=== PATIENT | female | born 1945 | race African-American/Black ===

== ENCOUNTER 2016-09-16 21:41 | Emergency (ER) | payer MEDICARE ==
[2016-09-16] MEDS ORDERED: AMOXICILLIN 500 MG CAP As Ordered ONE (23:04)
--- NOTE | 2016-09-16 23:13 | EDDOCDS ---
Nurse's Notes [facility] Name: Marcelle Dixon Age: 71 yrs Sex: Female : 1945 Arrival Date: 09/16/2016 Time: 21:41 Bed TR1 Private MD: GIGI SIDDIQI PA-C Diagnosis: Streptococcal pharyngitis Presentation: 09/16 21:47 Presenting complaint: Patient states: that she has a runny nose for the past 2 days and ms18 a slight headache. This patient has no additional risk factors. Adult Sepsis Screening: The patient does not have new or worsening altered mentation. Patient's respiratory rate is less than 22. Systolic blood pressure is greater than 100. Patient has a qSOFA score of 0- Negative Sepsis Screen. Suicide/Homicide risk assessment- the patient denies having any suicidal and/or homicidal ideations and does not present with any other emotional, behavioral or mental health complaints. Status: Patient is not a captain room service or dependent. Transition of care: patient was not received from another setting of care. 21:47 Method Of Arrival: Walkin/Carried/Asstd ms18 21:54 Acuity: SUNG Level 4 ms18 Triage Assessment: 21:53 Headache History: This patient has a history of headaches and the character of this ms18 headache is like all previous headaches. General: Appears in no apparent distress, comfortable, Behavior is appropriate for age, cooperative. Pain: Location: head Pain currently is 2 out of 10 on a pain scale. Pain began 2-3 days ago Also complains of no other associated symptoms. Neurological: Level of Consciousness is awake, alert, obeys commands, Oriented to person, place, time. EENT: Reports nasal discharge. Respiratory: No deficits noted. Derm: Skin is pink, warm & dry. normal. Historical: - Allergies: no known allergies; - Home Meds: 1. Allergy Relief (loratadine) 10 mg oral tab 1 tab once daily as needed 2. aspirin 81 mg Oral tab 1 tab once daily 3. Vitamin D3 2,000 unit oral cap daily 4. Klor-Con 10 10 mEq Oral TbER 1 tab 3 times per day 5. paroxetine HCl 20 mg Oral tab 1 tab once daily 6. omeprazole 20 mg Oral cpDR 1 cap once daily 7. simvastatin 20 mg Oral tab 1 tab once daily - PMHx: hypokalemia; Depression; Anxiety; GERD; High Cholesterol; - PSHx: nasal surgery; - Social history: Smoking status: Patient states was never smoker of tobacco. No barriers to communication noted, The patient speaks fluent Serbian. - Family history: Not pertinent. - : The pt / caregiver states he / she is not on anticoagulants. Home medication list is obtained from the patient. - Exposure Risk Screening:: None identified. Screenin:01 Screening information is obtained from the patient. Fall risk: No risks identified. b Assistance ADL's: requires no assistance with activities of daily living. Abuse/DV Screen: The patient / caregiver reports he/she is: not in a situation that causes fear, pain or injury. Nutritional screening: No deficits noted. Advance Directives: Currently, there is no health care proxy. There is no active DNR order. There is no living will. There is no Power of Paleontology Teacher. home support is adequate. Assessment: 23:01 General: Patient instructed on discharge instructions. Patient asked if [facility] were [facility] questions regarding discharge, patient stated no. Patient signed discharge instructions. Patient discharged in stable condition. . Pain: Location: head Pain currently is 4 out of 10 on a pain scale. Vital Signs: 21:44 BP 159 / 78; Pulse 101; Resp 18 S; Temp 101.6(O); Pulse Ox 97% on R/A; Weight 70.31 kg gr2 (R); Height 5 ft. 3 in. (160.02 cm) (R); Pain 7/10; 23:01 BP 148 / 70; Pulse 90; Resp 20; Temp 101.0(O); Pulse Ox 98% on R/A; Pain 4/10; jmb 21:44 Body Mass Index 27.46 (70.31 kg, 160.02 cm) gr2 Vitals: 21:44 Log In Time: September 16, 2016 at 21:44. gr2 22:58 Strep Screen is obtained and tested: [facility] Course: 21:43 Patient visited by Salomon Sosa. gr2 21:43 Patient moved to Waiting gr2 21:44 GIGI SIDDIQI is Private Physician. gr2 21:46 Patient visited by Salomon Sosa. gr2 21:46 Patient moved to Pre RCE gr2 21:55 Triage Initiated ms18 21:59 -Influenza A&B Rapid Antigen - Nose Sent. ms18 22:05 Patient moved to Triage 2 mdr 22:20 Lalito Montoya PA is PHCP. btw 22:20 Yamil Lemus DO is Attending Physician. btw 22:20 Patient visited by Lalito Montoya PA. btw 22:44 [facility] Payment Agreement was scanned into [email or web address] and attached to record. gb 22:59 GIGI SIDDIQI is Referral Physician. btw 23:01 The patient / caregiver is instructed regarding the plan of care and ED course. jmb 23:01 No IV's were initiated during this patient's visit. No procedures done that require jmb assistance. 23:11 Patient moved to TR1 mdr Administered Medications: 23:12 Drug: Amoxicillin 500 mg [amoxicillin 500 mg capsule (1 caps)] Route: PO; jmb Order Results: Lab Order: -Influenza A&B Rapid Antigen - Nose; SPEC'M 09/16/16 22:01 Test: INFLUENZA A RAPID SCR by ICA; Value: INFLUENZA A RESULTS NEGATIVE; Status: F Test: INFLUENZA A RAPID SCR by ICA; Value: Comments:; Status: F Test: INFLUENZA B RAPID SCR by ICA; Value: INFLUENZA B RESULTS NEGATIVE; Status: F Test Note: ; The Influenza test is a direct rapid immunoassay for the qualitative detection of Influenza viral antigen. Cell culture (Viral Culture) testing should be considered to confirm NEGATIVE results and to assist in detecting other viruses that can provide similar clinical symptoms. Please contact the lab within 24 hours ([phone]) if confirmatory testing is desired. Outcome: 23:00 Discharge ordered by Provider. btw 23:01 Discharge Assessment: Patient awake, alert and oriented x 3. No cognitive and/or jmb functional deficits noted. Patient verbalized understanding of disposition instructions. Patient awake and alert. obeys commands, Oriented to person, place and time. Patient verbalized understanding of disposition instructions. Patient has no functional deficits. patient administered narcotics - no. The following High Risk Discharge criteria are identified: None. Discharged to home ambulatory. Condition: stable Condition: improved. Discharge instructions given to patient, Instructed on discharge instructions, follow up and referral plans. Demonstrated understanding of instructions, medications, Pt was receptive of discharge instructions/ teaching. No special radiology studies were completed. Property sent home with patient. 23:12 Patient left the ED. cristobal Signatures: Shona Nova, Reg Reg gb Lalito Montoya, Salomon Jimenez gr2 Kulwinder Ellis,RN RN Dawn Brennan RN RN ms18 Ortiz Vargas, ORTHOTIST PROSTHETIST ORTHOTIST PROSTHETIST mdr MTDD
--- NOTE | 2016-09-16 23:13 | EDDOCDS ---
Physician Documentation [facility] Name: Marcelle Dixon Age: 71 yrs Sex: Female : 1945 Arrival Date: 09/16/2016 Time: 21:41 Bed TR1 Private MD: GIGI SIDDIQI PA-C Disposition: 09/16/16 23:00 Discharged to Home/Self Care. Impression: Streptococcal pharyngitis. - Condition is Stable. - Discharge Instructions: Strep Throat, [id number]. - Prescriptions for Amoxicillin 500 mg Oral Capsule - take 1 capsule by ORAL route every 8 hours for 10 days; 30 tablet. - Medication Reconciliation, Local Pharmacy Hours form. - Follow up: GIGI SIDDIQI; When: Call to arrange an appointment; Reason: Further diagnostic work-up, Recheck today's complaints, Continuance of care. - Problem is new. - Symptoms are unchanged. Historical: - Allergies: no known allergies; - Home Meds: 1. Allergy Relief (loratadine) 10 mg oral tab 1 tab once daily as needed 2. aspirin 81 mg Oral tab 1 tab once daily 3. Vitamin D3 2,000 unit oral cap daily 4. Klor-Con 10 10 mEq Oral TbER 1 tab 3 times per day 5. paroxetine HCl 20 mg Oral tab 1 tab once daily 6. omeprazole 20 mg Oral cpDR 1 cap once daily 7. simvastatin 20 mg Oral tab 1 tab once daily - PMHx: hypokalemia; Depression; Anxiety; GERD; High Cholesterol; - PSHx: nasal surgery; - Social history: Smoking status: Patient states was never smoker of tobacco. No barriers to communication noted, The patient speaks fluent Nigerien. - Family history: Not pertinent. - : The pt / caregiver states he / she is not on anticoagulants. Home medication list is obtained from the patient. - Exposure Risk Screening:: None identified. Vital Signs: 09/16 21:44 BP 159 / 78; Pulse 101; Resp 18 S; Temp 101.6(O); Pulse Ox 97% on R/A; Weight 70.31 kg gr2 / 155.01 lbs (R); Height 5 ft. 3 in. (160.02 cm) (R); Pain 7/10; 23:01 BP 148 / 70; Pulse 90; Resp 20; Temp 101.0(O); Pulse Ox 98% on R/A; Pain 4/10; jmb 21:44 Body Mass Index 27.46 (70.31 kg, 160.02 cm) gr2 MDM: 21:57 Obtain sample by nasopharyngeal swab ordered. btw 21:58 -Influenza A&B Rapid Antigen - Nose Ordered. EDMS 22:32 -Influenza A&B Rapid Antigen - Nose Reviewed. btw 22:33 Financial registration complete. gb 22:35 Strep Screen, Nursing ordered. btw 22:44 [facility] Payment Agreement was scanned into [employer] and attached to record. gb 22:59 Amoxicillin 500 mg PO once ordered. btw Administered Medications: 23:12 Drug: Amoxicillin 500 mg [amoxicillin 500 mg capsule (1 caps)] Route: PO; cristobal Signatures: Dispatcher [employer] EDMS Shona Nova, Reg Reg gb Lalito Montoya PA PA btw Kulwinder Ellis,RN RN Dawn Brennan RN RN ms18 The chart was reviewed and I authenticate all verbal orders and agree with the evaluation and treatment provided.Attachments: 22:44 [facility] Payment Agreement gb MTDD
--- NOTE | 2016-09-19 00:13 | EDDOCDS ---
Physician Documentation [facility] Name: Marcelle Dixon Age: 71 yrs Sex: Female : 1945 Arrival Date: 09/16/2016 Time: 21:41 Bed TR1 Private MD: GIGI SIDDIQI PA-C Disposition: 09/16/16 23:00 Discharged to Home/Self Care. Impression: Streptococcal pharyngitis. - Condition is Stable. - Discharge Instructions: Strep Throat, [id number]. - Prescriptions for Amoxicillin 500 mg Oral Capsule - take 1 capsule by ORAL route every 8 hours for 10 days; 30 tablet. - Medication Reconciliation, Local Pharmacy Hours form. - Follow up: GIGI SIDDIQI; When: Call to arrange an appointment; Reason: Further diagnostic work-up, Recheck today's complaints, Continuance of care. - Problem is new. - Symptoms are unchanged. Historical: - Allergies: no known allergies; - Home Meds: 1. Allergy Relief (loratadine) 10 mg oral tab 1 tab once daily as needed 2. aspirin 81 mg Oral tab 1 tab once daily 3. Vitamin D3 2,000 unit oral cap daily 4. Klor-Con 10 10 mEq Oral TbER 1 tab 3 times per day 5. paroxetine HCl 20 mg Oral tab 1 tab once daily 6. omeprazole 20 mg Oral cpDR 1 cap once daily 7. simvastatin 20 mg Oral tab 1 tab once daily - PMHx: hypokalemia; Depression; Anxiety; GERD; High Cholesterol; - PSHx: nasal surgery; - Social history: Smoking status: Patient states was never smoker of tobacco. No barriers to communication noted, The patient speaks fluent Mosotho. - Family history: Not pertinent. - : The pt / caregiver states he / she is not on anticoagulants. Home medication list is obtained from the patient. - Exposure Risk Screening:: None identified. Vital Signs: 09/16 21:44 BP 159 / 78; Pulse 101; Resp 18 S; Temp 101.6(O); Pulse Ox 97% on R/A; Weight 70.31 kg gr2 / 155.01 lbs (R); Height 5 ft. 3 in. (160.02 cm) (R); Pain 7/10; 23:01 BP 148 / 70; Pulse 90; Resp 20; Temp 101.0(O); Pulse Ox 98% on R/A; Pain 4/10; jmb 21:44 Body Mass Index 27.46 (70.31 kg, 160.02 cm) gr2 MDM: 21:57 Obtain sample by nasopharyngeal swab ordered. btw 21:58 -Influenza A&B Rapid Antigen - Nose Ordered. EDMS 22:32 -Influenza A&B Rapid Antigen - Nose Reviewed. btw 22:33 Financial registration complete. gb 22:35 Strep Screen, Nursing ordered. btw 22:44 [facility] Payment Agreement was scanned into [employer] and attached to record. gb 22:59 Amoxicillin 500 mg PO once ordered. bt 09/17 12:07 T-Sheet-- Draft Copy was scanned into [employer] and attached to record. gb Administered Medications: 09/16 23:12 Drug: Amoxicillin 500 mg [amoxicillin 500 mg capsule (1 caps)] Route: PO; cristobal Signatures: Dispatcher [employer] EDMD Shona Nova, Marlon Reg gb Lalito Montoya PA PA btw Kulwinder Ellis,RN RN cassyb Dawn Zhang RN RN ms18 The chart was reviewed and I authenticate all verbal orders and agree with the evaluation and treatment provided.Attachments: 22:44 [facility] Payment Agreement gb 09/17 12:07 T-Sheet-- Draft Copy gb Chart Complete MTDD
--- NOTE | 2016-09-19 00:13 | EDDOCDS ---
Nurse's Notes [facility] Name: Marcelle Dixon Age: 71 yrs Sex: Female : 1945 Arrival Date: 09/16/2016 Time: 21:41 Bed TR1 Private MD: GIGI SIDDIQI PA-C Diagnosis: Streptococcal pharyngitis Presentation: 09/16 21:47 Presenting complaint: Patient states: that she has a runny nose for the past 2 days and ms18 a slight headache. This patient has no additional risk factors. Adult Sepsis Screening: The patient does not have new or worsening altered mentation. Patient's respiratory rate is less than 22. Systolic blood pressure is greater than 100. Patient has a qSOFA score of 0- Negative Sepsis Screen. Suicide/Homicide risk assessment- the patient denies having any suicidal and/or homicidal ideations and does not present with any other emotional, behavioral or mental health complaints. Status: Patient is not a banking services clerk or dependent. Transition of care: patient was not received from another setting of care. 21:47 Method Of Arrival: Walkin/Carried/Asstd ms18 21:54 Acuity: SUNG Level 4 ms18 Triage Assessment: 21:53 Headache History: This patient has a history of headaches and the character of this ms18 headache is like all previous headaches. General: Appears in no apparent distress, comfortable, Behavior is appropriate for age, cooperative. Pain: Location: head Pain currently is 2 out of 10 on a pain scale. Pain began 2-3 days ago Also complains of no other associated symptoms. Neurological: Level of Consciousness is awake, alert, obeys commands, Oriented to person, place, time. EENT: Reports nasal discharge. Respiratory: No deficits noted. Derm: Skin is pink, warm & dry. normal. Historical: - Allergies: no known allergies; - Home Meds: 1. Allergy Relief (loratadine) 10 mg oral tab 1 tab once daily as needed 2. aspirin 81 mg Oral tab 1 tab once daily 3. Vitamin D3 2,000 unit oral cap daily 4. Klor-Con 10 10 mEq Oral TbER 1 tab 3 times per day 5. paroxetine HCl 20 mg Oral tab 1 tab once daily 6. omeprazole 20 mg Oral cpDR 1 cap once daily 7. simvastatin 20 mg Oral tab 1 tab once daily - PMHx: hypokalemia; Depression; Anxiety; GERD; High Cholesterol; - PSHx: nasal surgery; - Social history: Smoking status: Patient states was never smoker of tobacco. No barriers to communication noted, The patient speaks fluent Vietnamese. - Family history: Not pertinent. - : The pt / caregiver states he / she is not on anticoagulants. Home medication list is obtained from the patient. - Exposure Risk Screening:: None identified. Screenin:01 Screening information is obtained from the patient. Fall risk: No risks identified. b Assistance ADL's: requires no assistance with activities of daily living. Abuse/DV Screen: The patient / caregiver reports he/she is: not in a situation that causes fear, pain or injury. Nutritional screening: No deficits noted. Advance Directives: Currently, there is no health care proxy. There is no active DNR order. There is no living will. There is no Power of Derrick Car Operator. home support is adequate. Assessment: 23:01 General: Patient instructed on discharge instructions. Patient asked if there were any [facility] questions regarding discharge, patient stated no. Patient signed discharge instructions. Patient discharged in stable condition. . Pain: Location: head Pain currently is 4 out of 10 on a pain scale. Vital Signs: 21:44 BP 159 / 78; Pulse 101; Resp 18 S; Temp 101.6(O); Pulse Ox 97% on R/A; Weight 70.31 kg gr2 (R); Height 5 ft. 3 in. (160.02 cm) (R); Pain 7/10; 23:01 BP 148 / 70; Pulse 90; Resp 20; Temp 101.0(O); Pulse Ox 98% on R/A; Pain 4/10; jmb 21:44 Body Mass Index 27.46 (70.31 kg, 160.02 cm) gr2 Vitals: 21:44 Log In Time: September 16, 2016 at 21:44. gr2 22:58 Strep Screen is obtained and tested: Positive. [facility] ED Course: 21:43 Patient visited by Salomon Sosa. gr2 21:43 Patient moved to Waiting gr2 21:44 GIGI SIDDIQI is Private Physician. gr2 21:46 Patient visited by Salomon Sosa. gr2 21:46 Patient moved to Pre RCE gr2 21:55 Triage Initiated ms18 21:59 -Influenza A&B Rapid Antigen - Nose Sent. ms18 22:05 Patient moved to Triage 2 mdr 22:20 Lalito Montoya PA is PHCP. btw 22:20 Yamil Lemus DO is Attending Physician. btw 22:20 Patient visited by Lalito Montoya PA. btw 22:44 [facility] Payment Agreement was scanned into [employer] and attached to record. gb 22:59 GIGI SIDDIQI is Referral Physician. btw 23:01 The patient / caregiver is instructed regarding the plan of care and ED course. jmb 23:01 No IV's were initiated during this patient's visit. No procedures done that require jmb assistance. 23:11 Patient moved to TR1 mdr 09/17 12:07 T-Sheet-- Draft Copy was scanned into [employer] and attached to record. gb Administered Medications: 09/16 23:12 Drug: Amoxicillin 500 mg [amoxicillin 500 mg capsule (1 caps)] Route: PO; jmb Order Results: Lab Order: -Influenza A&B Rapid Antigen - Nose; SPEC'M 09/16/16 22:01 Test: INFLUENZA A RAPID SCR by ICA; Value: INFLUENZA A RESULTS NEGATIVE; Status: F Test: INFLUENZA A RAPID SCR by ICA; Value: Comments:; Status: F Test: INFLUENZA B RAPID SCR by ICA; Value: INFLUENZA B RESULTS NEGATIVE; Status: F Test Note: ; The Influenza test is a direct rapid immunoassay for the qualitative detection of Influenza viral antigen. Cell culture (Viral Culture) testing should be considered to confirm NEGATIVE results and to assist in detecting other viruses that can provide similar clinical symptoms. Please contact the lab within 24 hours ([phone]) if confirmatory testing is desired. Outcome: 23:00 Discharge ordered by Provider. btw 23:01 Discharge Assessment: Patient awake, alert and oriented x 3. No cognitive and/or jmb functional deficits noted. Patient verbalized understanding of disposition instructions. Patient awake and alert. obeys commands, Oriented to person, place and time. Patient verbalized understanding of disposition instructions. Patient has no functional deficits. patient administered narcotics - no. The following High Risk Discharge criteria are identified: None. Discharged to home ambulatory. Condition: stable Condition: improved. Discharge instructions given to patient, Instructed on discharge instructions, follow up and referral plans. Demonstrated understanding of instructions, medications, Pt was receptive of discharge instructions/ teaching. No special radiology studies were completed. Property sent home with patient. 23:12 Patient left the ED. cristobal Signatures: Shona Nova, Reg Reg gb Lalito Montoya PA PA btw Salomon Sosa gr2 Kulwinder EllisRN RN Dawn Brennan RN RN ms18 Ortiz Vargas, NIRAJ PULMONARY FELLOW mdr Chart Complete MTDD
--- NOTE | 2016-09-19 00:13 | EDDOCDS ---
Physician Documentation [facility] Name: Marcelle Dixon Age: 71 yrs Sex: Female : 1945 Arrival Date: 09/16/2016 Time: 21:41 Bed TR1 Private MD: GIGI SIDDIQI PA-C Disposition: 09/16/16 23:00 Discharged to Home/Self Care. Impression: Streptococcal pharyngitis. - Condition is Stable. - Discharge Instructions: Strep Throat, [id number]. - Prescriptions for Amoxicillin 500 mg Oral Capsule - take 1 capsule by ORAL route every 8 hours for 10 days; 30 tablet. - Medication Reconciliation, Local Pharmacy Hours form. - Follow up: GIGI SIDDIQI; When: Call to arrange an appointment; Reason: Further diagnostic work-up, Recheck today's complaints, Continuance of care. - Problem is new. - Symptoms are unchanged. Historical: - Allergies: no known allergies; - Home Meds: 1. Allergy Relief (loratadine) 10 mg oral tab 1 tab once daily as needed 2. aspirin 81 mg Oral tab 1 tab once daily 3. Vitamin D3 2,000 unit oral cap daily 4. Klor-Con 10 10 mEq Oral TbER 1 tab 3 times per day 5. paroxetine HCl 20 mg Oral tab 1 tab once daily 6. omeprazole 20 mg Oral cpDR 1 cap once daily 7. simvastatin 20 mg Oral tab 1 tab once daily - PMHx: hypokalemia; Depression; Anxiety; GERD; High Cholesterol; - PSHx: nasal surgery; - Social history: Smoking status: Patient states was never smoker of tobacco. No barriers to communication noted, The patient speaks fluent Martiniquais. - Family history: Not pertinent. - : The pt / caregiver states he / she is not on anticoagulants. Home medication list is obtained from the patient. - Exposure Risk Screening:: None identified. Vital Signs: 09/16 21:44 BP 159 / 78; Pulse 101; Resp 18 S; Temp 101.6(O); Pulse Ox 97% on R/A; Weight 70.31 kg gr2 / 155.01 lbs (R); Height 5 ft. 3 in. (160.02 cm) (R); Pain 7/10; 23:01 BP 148 / 70; Pulse 90; Resp 20; Temp 101.0(O); Pulse Ox 98% on R/A; Pain 4/10; jmb 21:44 Body Mass Index 27.46 (70.31 kg, 160.02 cm) gr2 MDM: 21:57 Obtain sample by nasopharyngeal swab ordered. btw 21:58 -Influenza A&B Rapid Antigen - Nose Ordered. EDMS 22:32 -Influenza A&B Rapid Antigen - Nose Reviewed. btw 22:33 Financial registration complete. gb 22:35 Strep Screen, Nursing ordered. btw 22:44 [facility] Payment Agreement was scanned into [employer] and attached to record. gb 22:59 Amoxicillin 500 mg PO once ordered. bt 09/17 12:07 T-Sheet-- Draft Copy was scanned into [employer] and attached to record. gb Administered Medications: 09/16 23:12 Drug: Amoxicillin 500 mg [amoxicillin 500 mg capsule (1 caps)] Route: PO; cristobal Signatures: Dispatcher [employer] EDCA Shona Nova, Marlon Reg gb Lalito Montoya PA PA btw Kulwinder Ellis,RN RN cassyb Dawn Zhang RN RN ms18 The chart was reviewed and I authenticate all verbal orders and agree with the evaluation and treatment provided.Attachments: 22:44 [facility] Payment Agreement gb 09/17 12:07 T-Sheet-- Draft Copy gb Chart Complete MTDD
== END 2016-09-16 23:12 | disposition home or self-care (01) ==
LOC: M ED 21:41
DX: J02.0 Streptococcal pharyngitis (principal); E87.6 Hypokalemia; F32.9 Major depressive disorder, single episode, unspecified; F41.9 Anxiety disorder, unspecified; K21.9 Gastro-esophageal reflux disease without esophagitis; E78.00 Pure hypercholesterolemia, unspecified; Z79.82 Long term (current) use of aspirin; Z79.899 Other long term (current) drug therapy

== ENCOUNTER 2017-01-14 10:30 | Emergency (ER) | payer MEDICARE ==
[~2017-01-14] VITALS: Ht 165.1 cm; Wt 76.4 kg
[2017-01-14] MEDS ORDERED: ESTR1CRE PV (10:52)
[2017-01-14] MEDS ORDERED: PARO-39 PO (10:52)
[2017-01-14] MEDS ORDERED: SIMV20TA2 PO (10:52)
[2017-01-14] MEDS ORDERED: OMEP20CA3 PO (10:52)
[2017-01-14] MEDS ORDERED: VITA20008 PO (10:52)
[2017-01-14] MEDS ORDERED: POTA10CA PO (10:52)
[2017-01-14] MEDS ORDERED: ASPI81TA7 PO (10:53)
[2017-01-14] MEDS ORDERED: FLON1SPR (11:33)
[2017-01-14] MEDS ORDERED: CLAR1TAB2 PO (11:33)
[2017-01-14 11:46] VITALS: BP 159/81
== END 2017-01-14 11:47 | disposition home or self-care (01) ==
LOC: M ED 11:13
DX: J30.9 Allergic rhinitis, unspecified (principal); I10 Essential (primary) hypertension; Z79.899 Other long term (current) drug therapy; Z79.82 Long term (current) use of aspirin

== ENCOUNTER → 2017-04-20 | Outpatient (CLI) | payer MEDICARE ==
[~2017-04-20] MED LIST: ASPI1TAB15 PO; CLAR1TAB2 PO; ESTR1CRE PV; FLON1SPR; OMEP20CA3 PO; PARO20TA4 PO; POTA10CA PO; SIMV20TA2 PO; VITA20008 PO
[2017-04-20 09:38] LABS: MEAN CORPUSCULAR HEMOGLOBIN 29.9 pg (27.0-33.0); MEAN CORPUSCULAR HGB CONC 32.9 g/dl (32.0-36.5); MEAN CORPUSCULAR VOLUME 90.9 fl (80.0-96.0); RED CELL DISTRIBUTION WIDTH 13.1 % (11.5-14.5); WHITE BLOOD COUNT 6.7 K/mm3 (4.0-10.0)
[2017-04-20 10:01] LABS: ALBUMIN 3.9 GM/DL (3.2-5.2); ALBUMIN/GLOBULIN RATIO 0.95 (1.00-1.93); ALKALINE PHOSPHATASE 90 U/L (45-117); ALT/SGPT 22 U/L (12-78); ANION GAP 8 MEQ/L (8-16); AST/SGOT 21 U/L (15-37); BILIRUBIN,TOTAL 0.4 MG/DL (0.2-1.0); BLOOD UREA NITROGEN 12 MG/DL (7-18); CALCIUM LEVEL 9.1 MG/DL (8.8-10.2); CARBON DIOXIDE LEVEL 27 MEQ/L (21-32); CHLORIDE LEVEL 107 MEQ/L (98-107); CHOLESTEROL LEVEL 175 MG/DL (<200); CREATININE FOR GFR 1.01 MG/DL (0.55-1.02); GLOMERULAR FILTRATION RATE > 60.0 (>39); GLUCOSE, FASTING 89 MG/DL (83-110); POTASSIUM SERUM 4.7 MEQ/L (3.5-5.1); SODIUM LEVEL 142 MEQ/L (136-145); TRIGLYCERIDES LEVEL 51 MG/DL (<150)
== END ==
LOC: M LAB 08:00
PROVIDERS: ATTEND Family Medicine
DX: K21.9 Gastro-esophageal reflux disease without esophagitis (principal); E78.4 Other hyperlipidemia; E55.9 Vitamin D deficiency, unspecified

== ENCOUNTER → 2017-10-20 | Outpatient (REF) | payer MEDICARE ==
[2017-10-20 12:22] LABS: ALBUMIN 4.1 GM/DL (3.2-5.2); ALBUMIN/GLOBULIN RATIO 1.05 (1.00-1.93); ALKALINE PHOSPHATASE 87 U/L (45-117); ALT/SGPT 23 U/L (12-78); ANION GAP 7 MEQ/L (8-16); AST/SGOT 24 U/L (7-37); BILIRUBIN,TOTAL 0.4 MG/DL (0.2-1.0); BLOOD UREA NITROGEN 13 MG/DL (7-18); CALCIUM LEVEL 9.1 MG/DL (8.8-10.2); CARBON DIOXIDE LEVEL 28 MEQ/L (21-32); CHLORIDE LEVEL 106 MEQ/L (98-107); CREATININE FOR GFR 0.99 MG/DL (0.55-1.30); GLOMERULAR FILTRATION RATE > 60.0 (>39); GLUCOSE, FASTING 86 MG/DL (70-100); POTASSIUM SERUM 4.3 MEQ/L (3.5-5.1); SODIUM LEVEL 141 MEQ/L (136-145)
[2017-10-20 12:26] LABS: MALB URINE SIEMENS 13.8 MG/L
[2017-10-20 12:41] LABS: TOTAL 25(OH) VITAMIN D 47.8 NG/ML (30.0-100.0)
== END ==
LOC: M SFHCPLAZ 10:27
DX: E55.9 Vitamin D deficiency, unspecified (principal); I10 Essential (primary) hypertension
CPT/HCPCS: 80053

== ENCOUNTER 2017-12-25 23:32 | Emergency (ER) | payer MEDICARE ==
[2017-12-26] MEDS: CETIRIZINE (ZyrTEC) 10 MG TAB PO (02:52)
== END 2017-12-26 02:52 | disposition home or self-care (01) ==
LOC: M ED 23:32
DX: J30.9 Allergic rhinitis, unspecified (principal); Z79.899 Other long term (current) drug therapy; Z79.82 Long term (current) use of aspirin
CPT/HCPCS: 99283

== ENCOUNTER 2017-12-29 19:05 | Emergency (ER) | payer MEDICARE ==
[2017-12-29] MEDS: IPRATROPIUM 0.5MG/ALBUTEROL 2.5MG INH SOL UD 3ML (DUONEB)(J7620) NEB ×4 (23:36→23:57)
[2017-12-29] MEDS: BENZONATATE 100 MG CAP PO ×2 (23:53)
[2017-12-30 02:49] LABS: ANION GAP 6 MEQ/L (8-16); BLOOD UREA NITROGEN 8 MG/DL (7-18); CALCIUM LEVEL 8.9 MG/DL (8.8-10.2); CARBON DIOXIDE LEVEL 26 MEQ/L (21-32); CHLORIDE LEVEL 108 MEQ/L (98-107); CREATININE FOR GFR 1.04 MG/DL (0.55-1.30); GLOMERULAR FILTRATION RATE > 60.0 (>39); GLUCOSE, FASTING 101 MG/DL (70-100); NT-PRO BNP 28 PG/ML (<125); POTASSIUM SERUM 3.7 MEQ/L (3.5-5.1); SODIUM LEVEL 140 MEQ/L (136-145)
[2017-12-30 04:55] LABS: BASO % 0.6 % (0.0-1.0); EOS # 0.2 10^3/uL (0.0-0.50); EOS % 3.3 % (0.0-3.0); HEMATOCRIT 38.3 % (36.0-47.0); HEMOGLOBIN 12.2 g/dl (12.0-15.5); IMMATURE GRANULOCYTE % 0.2 % (0-3.0); LYMPH # 1.9 10^3/uL (1.5-4.5); LYMPH % 39.9 % (24.0-44.0); MEAN CORPUSCULAR HEMOGLOBIN 29.3 pg (27.0-33.0); MEAN CORPUSCULAR HGB CONC 31.9 g/dl (32.0-36.5); MEAN CORPUSCULAR VOLUME 92.1 fl (80.0-96.0); MONO # 0.5 10^3/uL (0.0-0.8); MONO % 10.4 % (0.0-5.0); NEUTROPHILS # 2.2 10^3/uL (1.8-7.7); NEUTROPHILS % 45.6 % (36.0-66.0); PLATELET COUNT, AUTOMATED 345 10^3/uL (150-450); RED BLOOD COUNT 4.16 10^6/uL (4.00-5.40); RED CELL DISTRIBUTION WIDTH 13.1 % (11.5-14.5); WHITE BLOOD COUNT 4.8 10^3/uL (4.0-10.0)
[2017-12-30 05:27] LABS: ADD MORPHOLOGY? YES; POSITIVE MORPH POS FLAG
[2017-12-30 05:32] LABS: PLATELET ESTIMATE NORMAL (NORMAL)
== END 2017-12-30 01:45 | disposition home or self-care (01) ==
LOC: M ED 19:05
DX: J06.9 Acute upper respiratory infection, unspecified (principal); B34.9 Viral infection, unspecified; I10 Essential (primary) hypertension; E78.5 Hyperlipidemia, unspecified; K21.9 Gastro-esophageal reflux disease without esophagitis; Z79.899 Other long term (current) drug therapy; Z79.82 Long term (current) use of aspirin
CPT/HCPCS: 71046

== ENCOUNTER 2018-06-27 10:28 | Emergency (ER) | payer MEDICARE | END 2018-06-27 13:02 | disposition home or self-care (01) | LOC: M ED 10:28 | DX: J30.9 Allergic rhinitis, unspecified (principal); I10 Essential (primary) hypertension; E78.00 Pure hypercholesterolemia, unspecified; F33.9 Major depressive disorder, recurrent, unspecified; Z79.899 Other long term (current) drug therapy; Z79.82 Long term (current) use of aspirin | CPT/HCPCS: 99283 ==

== ENCOUNTER → 2018-08-24 | Outpatient (REF) | payer MEDICARE ==
[~2018-08-24] MED LIST changes: +AMLO5TAB6 PO; +AMOX875T PO; +CLAR5CHW9 PO; +KLOR10TA76 PO; +MUCI600T37 PO; -POTA10CA PO; +SIMV40TA2 PO; +ZYRT10CA PO
[2018-08-24 13:46] LABS: ALBUMIN 4.2 GM/DL (3.2-5.2); ALT/SGPT 33 U/L (12-78); BILIRUBIN,TOTAL 0.3 MG/DL (0.2-1.0); BLOOD UREA NITROGEN 14 MG/DL (7-18); CALCIUM LEVEL 9.3 MG/DL (8.8-10.2); CARBON DIOXIDE LEVEL 28 MEQ/L (21-32); CHLORIDE LEVEL 106 MEQ/L (98-107); CREATININE FOR GFR 0.94 MG/DL (0.55-1.30); GLOMERULAR FILTRATION RATE > 60.0 (>39); GLUCOSE, FASTING 91 MG/DL (70-100); POTASSIUM SERUM 4.1 MEQ/L (3.5-5.1); SODIUM LEVEL 139 MEQ/L (136-145); TOTAL PROTEIN 8.1 GM/DL (6.4-8.2)
[2018-08-24 15:01] LABS: TOTAL 25(OH) VITAMIN D 35.1 NG/ML (30.0-100.0)
== END ==
LOC: M SFHCPLAZ 10:32
PROVIDERS: ATTEND Nurse Practitioner Family
DX: I10 Essential (primary) hypertension (principal); E78.49 Other hyperlipidemia; E55.9 Vitamin D deficiency, unspecified
CPT/HCPCS: 36415; 80053; 82306; G0463

== ENCOUNTER 2018-12-05 10:34 | Emergency (ER) | payer MEDICARE ==
[~2018-12-05] VITALS: Ht 160 cm; Wt 76.4 kg
[2018-12-05 10:35] VITALS: BP 139/84
[2018-12-05] MEDS ORDERED: AMOX875T PO (11:14)
[2018-12-05] MEDS ORDERED: FLON1SPR NARES (11:14)
== END 2018-12-05 11:21 | disposition home or self-care (01) ==
LOC: M ED 10:45
DX: J30.9 Allergic rhinitis, unspecified (principal); I10 Essential (primary) hypertension; E78.5 Hyperlipidemia, unspecified; K21.9 Gastro-esophageal reflux disease without esophagitis; Z79.899 Other long term (current) drug therapy; Z79.82 Long term (current) use of aspirin; Z79.890 Hormone replacement therapy

== ENCOUNTER → 2019-02-09 | Outpatient (REF) | payer MEDICARE ==
[~2019-02-09] MED LIST changes: +FLON1SPR NARES; -OMEP20CA3 PO; +OMEP20CA4 PO
[2019-02-09 12:24] LABS: ALBUMIN 4.1 GM/DL (3.2-5.2); BILIRUBIN,TOTAL 0.3 MG/DL (0.2-1.0); CALCIUM LEVEL 9.5 MG/DL (8.8-10.2); CHOLESTEROL RISK RATIO 2.442 (<5); CREATININE FOR GFR 1.16 MG/DL (0.55-1.30); GLOMERULAR FILTRATION RATE 59.1 (>39); POTASSIUM SERUM 3.9 MEQ/L (3.5-5.1); TOTAL PROTEIN 8.4 GM/DL (6.4-8.2)
[2019-02-09 12:25] LABS: HEMATOCRIT 39.3 % (36.0-47.0); HEMOGLOBIN 11.9 g/dl (12.0-15.5); MEAN CORPUSCULAR HEMOGLOBIN 28.5 pg (27.0-33.0); MEAN CORPUSCULAR HGB CONC 30.3 g/dl (32.0-36.5); PLATELET COUNT, AUTOMATED 534 10^3/uL (150-450); RED BLOOD COUNT 4.18 10^6/uL (4.00-5.40); WHITE BLOOD COUNT 7.8 10^3/uL (4.0-10.0)
[2019-02-09 13:25] LABS: TOTAL 25(OH) VITAMIN D 38.4 NG/ML (30.0-100.0)
== END ==
LOC: M SFHCPLAZ 09:18
PROVIDERS: ATTEND Nurse Practitioner Family
DX: I10 Essential (primary) hypertension (principal); E78.49 Other hyperlipidemia; K21.9 Gastro-esophageal reflux disease without esophagitis; E55.9 Vitamin D deficiency, unspecified

== ENCOUNTER → 2019-03-30 | Outpatient (REF) | payer MEDICARE ==
[2019-03-30 11:21] LABS: BASO # 0.1 10^3/uL (0.0-0.2); BASO % 0.8 % (0.0-1.0); EOS # 0.2 10^3/uL (0.0-0.50); HEMATOCRIT 38.5 % (36.0-47.0); HEMOGLOBIN 11.9 g/dl (12.0-15.5); LYMPH # 1.3 10^3/uL (1.5-4.5); LYMPH % 18.7 % (24.0-44.0); MEAN CORPUSCULAR HEMOGLOBIN 28.8 pg (27.0-33.0); MEAN CORPUSCULAR HGB CONC 30.9 g/dl (32.0-36.5); MEAN CORPUSCULAR VOLUME 93.2 fl (80.0-96.0); MONO # 0.6 10^3/uL (0.0-0.8); MONO % 8.9 % (0.0-5.0); NEUTROPHILS # 4.9 10^3/uL (1.8-7.7); NEUTROPHILS % 68.3 % (36.0-66.0); PLATELET COUNT, AUTOMATED 487 10^3/uL (150-450); RED BLOOD COUNT 4.13 10^6/uL (4.00-5.40); WHITE BLOOD COUNT 7.1 10^3/uL (4.0-10.0)
== END ==
LOC: M SFHCPLAZ 08:13
PROVIDERS: ATTEND Nurse Practitioner Family
DX: D47.3 Essential (hemorrhagic) thrombocythemia (principal); D64.9 Anemia, unspecified

== ENCOUNTER → 2021-02-06 | Outpatient (CLI) | payer MEDICARE ==
[~2021-02-06] MED LIST changes: +AMLO1TAB24 PO; -AMLO5TAB6 PO; +ASPI-546 PO; -ASPI1TAB15 PO; +OMEP1CAP73 PO; -OMEP20CA4 PO; -SIMV20TA2 PO; +SIMV20TA22 PO; -SIMV40TA2 PO; +SIMV40TA20 PO
[2021-02-06 10:34] LABS: HEMATOCRIT 40.2 % (36.0-47.0); HEMOGLOBIN 12.6 g/dl (12.0-15.5); MEAN CORPUSCULAR HEMOGLOBIN 29.4 pg (27.0-33.0); MEAN CORPUSCULAR HGB CONC 31.3 g/dl (32.0-36.5); MEAN CORPUSCULAR VOLUME 93.7 fl (80.0-96.0); PLATELET COUNT, AUTOMATED 489 10^3/uL (150-450); RED BLOOD COUNT 4.29 10^6/uL (4.00-5.40); WHITE BLOOD COUNT 6.7 10^3/uL (4.0-10.0)
[2021-02-06 11:09] LABS: ALT/SGPT 29 U/L (12-78); BILIRUBIN,TOTAL 0.4 MG/DL (0.2-1.0); BLOOD UREA NITROGEN 11 MG/DL (7-18); CALCIUM LEVEL 9.6 MG/DL (8.8-10.2); CARBON DIOXIDE LEVEL 26 MEQ/L (21-32); CHLORIDE LEVEL 109 MEQ/L (98-107); CHOLESTEROL LEVEL 183 MG/DL (<200); CHOLESTEROL RISK RATIO 3.267 (<5); CREATININE FOR GFR 1.05 MG/DL (0.55-1.30); GLOMERULAR FILTRATION RATE > 60.0 (>39); GLUCOSE, FASTING 93 MG/DL (70-100); HDL CHOLESTEROL 56 MG/DL (>40); LDL CHOLESTEROL 112 MG/DL (<100); NON-HDL-C 127 MG/DL; POTASSIUM SERUM 4.4 MEQ/L (3.5-5.1); SODIUM LEVEL 142 MEQ/L (136-145); TOTAL PROTEIN 8.2 GM/DL (6.4-8.2); TRIGLYCERIDES LEVEL 75 MG/DL (<150)
[2021-02-06 11:24] LABS: TOTAL 25(OH) VITAMIN D 44.3 NG/ML (30.0-100.0)
== END ==
LOC: M PLALAB 08:39
PROVIDERS: ATTEND Family Medicine
DX: I10 Essential (primary) hypertension (principal); Z79.899 Other long term (current) drug therapy

== ENCOUNTER 2021-03-21 14:48 | Emergency (ER) | payer MEDICARE ==
[~2021-03-21] VITALS: Ht 160 cm; Wt 78.9 kg
[2021-03-21] MEDS ORDERED: IBUP200T45 PO (15:15)
--- NOTE | 2021-03-21 18:55 | REPVR ---
PROCEDURE INFORMATION: Exam: CT Head Without Contrast Exam date and time: 03/21/2021 6:27 PM Age: 75 years old Clinical indication: Injury or trauma; Fall; Blunt trauma (contusions or hematomas) TECHNIQUE: Imaging protocol: Computed tomography of the head without contrast. Radiation optimization: All CT scans at this facility use at least one of these dose optimization techniques: automated exposure control; mA and/or kV adjustment per patient size (includes targeted exams where dose is matched to clinical indication); or iterative reconstruction. COMPARISON: No relevant prior studies available. FINDINGS: Brain: Small focus of hypodensity demonstrated in a sulcus in the right temporoparietal region. Finding could represent a small focus of parenchymal hemorrhage or calcification. Further evaluation with thin section imaging suggested if clinically desired. Cerebral ventricles: No ventriculomegaly. Paranasal sinuses: Inflammatory changes in the right maxillary sinus likely posttraumatic. Mastoid air cells: Visualized mastoid air cells are well aerated. Vasculature: Atherosclerotic calcifications are demonstrated in the intracranial carotid arteries bilaterally as well as in the vertebral basilar system. Bones/joints: Fractured right mandibular ramus. Fractured lateral wall of the right maxillary sinus. Correlation with with accompanying maxillofacial CT suggested. Soft tissues: Unremarkable. IMPRESSION: 1. Small focus of hypodensity demonstrated in a sulcus in the right temporoparietal region. Finding could represent a small focus of parenchymal hemorrhage or calcification. Further evaluation with thin section imaging suggested if clinically desired. 2. Fractured right mandibular ramus. 3. Fractured lateral wall of the right maxillary sinus. Correlation with with accompanying maxillofacial CT suggested. 4. Inflammatory changes in the right maxillary sinus likely posttraumatic. Electronically signed by: Martín Mullins On 03/21/2021 18:54:39 PM
--- NOTE | 2021-03-21 19:00 | REPVR ---
PROCEDURE INFORMATION: Exam: CT Maxillofacial Without Contrast Exam date and time: 03/21/2021 6:32 PM Age: 75 years old Clinical indication: Injury or trauma; Fall; Blunt trauma (contusions or hematomas); Forehead and orbit/periorbital; Right TECHNIQUE: Imaging protocol: Computed tomography images of the face without contrast. Radiation optimization: All CT scans at this facility use at least one of these dose optimization techniques: automated exposure control; mA and/or kV adjustment per patient size (includes targeted exams where dose is matched to clinical indication); or iterative reconstruction. COMPARISON: No relevant prior studies available. FINDINGS: Orbital cavity: Orbits are normal. Globes are unremarkable. Bones/joints: The cervical spine demonstrates moderate degenerative changes. Fracture through the base of the coronoid process of the right francisco mandible. Fractured right zygomatic arch. Fractured lateral wall of the right maxillary sinus and lateral wall of the right orbit. Paranasal sinuses: Inflammatory changes demonstrated in the left frontal ethmoid sinus. Posttraumatic inflammatory changes in the right maxillary sinus within air or blood fluid level. Auditory system: Retained cerumen in both external auditory canals. Soft tissues: Unremarkable. IMPRESSION: 1. Fracture through the base of the coronoid process of the right francisco mandible. 2. Fractured right zygomatic arch. 3. Fractured lateral wall of the right maxillary sinus and lateral wall of the right orbit. 4. Posttraumatic inflammatory changes in the right maxillary sinus within air or blood fluid level. Electronically signed by: Martín Mullins On 03/21/2021 19:00:11 PM
[2021-03-21 20:05] LABS: BASO % 0.4 % (0.0-1.0); EOS # 0.1 10^3/uL (0.0-0.5); EOS % 1.1 % (0.0-3.0); HEMATOCRIT 40.8 % (36.0-47.0); HEMOGLOBIN 13.1 g/dl (12.0-15.5); LYMPH # 1.4 10^3/uL (1.5-5.0); LYMPH % 15.1 % (24.0-44.0); MEAN CORPUSCULAR HEMOGLOBIN 29.2 pg (27.0-33.0); MEAN CORPUSCULAR HGB CONC 32.1 g/dl (32.0-36.5); MEAN CORPUSCULAR VOLUME 91.1 fl (80.0-96.0); MONO # 0.7 10^3/uL (0.0-0.8); MONO % 8.1 % (2.0-8.0); NEUTROPHILS # 6.9 10^3/uL (1.5-8.5); PLATELET COUNT, AUTOMATED 473 10^3/uL (150-450); RED BLOOD COUNT 4.48 10^6/uL (4.00-5.40); WHITE BLOOD COUNT 9.2 10^3/uL (4.0-10.0)
[2021-03-21] MEDS ORDERED: LIDOCAINE 1% MDV 20ML VIAL SC ONE (20:25)
[2021-03-21 20:27] LABS: ALBUMIN 4.1 GM/DL (3.2-5.2); BILIRUBIN,DIRECT 0.1 MG/DL (0.0-0.2); BILIRUBIN,TOTAL 0.4 MG/DL (0.2-1.0); TOTAL PROTEIN 8.3 GM/DL (6.4-8.2)
[2021-03-21 21:35] VITALS: BP 179/84
== END 2021-03-21 21:36 | disposition short-term general hospital (02) ==
LOC: M ED 14:48
DX: S01.111A Laceration without foreign body of right eyelid and periocular area, initial encounter (principal); S52.04 Fracture of coronoid process of ulna; S02.609A Fracture of mandible, unspecified, initial encounter for closed fracture; S02.40CA Maxillary fracture, right side, initial encounter for closed fracture; S02.402A Zygomatic fracture, unspecified side, initial encounter for closed fracture; S09.90XA Unspecified injury of head, initial encounter; R04.0 Epistaxis; W06.XXXA Fall from bed, initial encounter; Y92.099 Unspecified place in other non-institutional residence as the place of occurrence of the external cause; Y93.84 Activity, sleeping; Y99.9 Unspecified external cause status; I10 Essential (primary) hypertension; E78.5 Hyperlipidemia, unspecified; Z79.899 Other long term (current) drug therapy; Z79.82 Long term (current) use of aspirin

== ENCOUNTER → 2021-09-17 | Outpatient (CLI) | payer MEDICARE ==
[~2021-09-17] MED LIST changes: +IBUP200T46 PO; -KLOR10TA76 PO; +POTA-136 PO
[2021-09-17 10:28] LABS: HEMATOCRIT 38.8 % (36.0-47.0); MEAN CORPUSCULAR HGB CONC 30.9 g/dl (32.0-36.5); MEAN CORPUSCULAR VOLUME 93.7 fl (80.0-96.0); PLATELET COUNT, AUTOMATED 492 10^3/uL (150-450); RED BLOOD COUNT 4.14 10^6/uL (4.00-5.40); WHITE BLOOD COUNT 6.9 10^3/uL (4.0-10.0)
[2021-09-17 11:14] LABS: BLOOD UREA NITROGEN 15 MG/DL (7-18); CALCIUM LEVEL 9.7 MG/DL (8.8-10.2); CARBON DIOXIDE LEVEL 25 MEQ/L (21-32); CHLORIDE LEVEL 108 MEQ/L (98-107); CREATININE FOR GFR 1.01 MG/DL (0.55-1.30); GLOMERULAR FILTRATION RATE > 60.0 (>39); GLUCOSE, FASTING 89 MG/DL (70-100); POTASSIUM SERUM 4.6 MEQ/L (3.5-5.1); SODIUM LEVEL 142 MEQ/L (136-145)
== END ==
LOC: M PLALAB 08:22
PROVIDERS: ATTEND Family Medicine
DX: I10 Essential (primary) hypertension (principal); D47.3 Essential (hemorrhagic) thrombocythemia

== ENCOUNTER → 2022-12-18 | Outpatient (CLI) | payer MEDICARE ==
[2022-12-18 14:27] LABS: BASO # 0.1 10^3/uL (0.0-0.2); BASO % 0.9 % (0.0-1.0); EOS # 0.2 10^3/uL (0.0-0.5); EOS % 2.5 % (0.0-3.0); HEMATOCRIT 39.9 % (36.0-47.0); HEMOGLOBIN 12.5 g/dl (12.0-15.5); LYMPH # 1.6 10^3/uL (1.5-5.0); LYMPH % 20.7 % (24.0-44.0); MEAN CORPUSCULAR HEMOGLOBIN 29.3 pg (27.0-33.0); MEAN CORPUSCULAR HGB CONC 31.3 g/dl (32.0-36.5); MEAN CORPUSCULAR VOLUME 93.7 fl (80.0-96.0); MONO # 0.7 10^3/uL (0.0-0.8); MONO % 8.5 % (2.0-8.0); NEUTROPHILS # 5.2 10^3/uL (1.5-8.5); NEUTROPHILS % 67.1 % (36.0-66.0); PLATELET COUNT, AUTOMATED 451 10^3/uL (150-450); RED BLOOD COUNT 4.26 10^6/uL (4.00-5.40); WHITE BLOOD COUNT 7.7 10^3/uL (4.0-10.0)
[2022-12-18 14:28] LABS: ALBUMIN 4.1 G/DL (3.2-5.2); ALKALINE PHOSPHATASE 98 U/L (46-116); ALT/SGPT 21 U/L (7.0-40); AST/SGOT 25 U/L (<34); BILIRUBIN,TOTAL 0.3 MG/DL (0.3-1.2); BLOOD UREA NITROGEN 16 MG/DL (9-23); CALCIUM LEVEL 9.6 MG/DL (8.3-10.6); CARBON DIOXIDE LEVEL 25 MMOL/L (20-31); CHLORIDE LEVEL 109 MMOL/L (98-107); CHOLESTEROL LEVEL 175 MG/DL (<200); CREATININE FOR GFR 0.91 MG/DL (0.55-1.30); GLOMERULAR FILTRATION RATE > 60.0 (>39); GLUCOSE, FASTING 83 MG/DL (74-106); POTASSIUM SERUM 4.6 MMOL/L (3.5-5.1); SODIUM LEVEL 139 MMOL/L (136-145); TOTAL PROTEIN 7.7 G/DL (5.7-8.2); TRIGLYCERIDES LEVEL 95 MG/DL (<150)
[2022-12-18 14:30] LABS: THYROID STIMULATING HORMONE 3.581 uIU/ML (0.55-4.78)
== END ==
LOC: M PLALAB 10:37
PROVIDERS: ATTEND Physician Assistant
DX: R51.9 Headache, unspecified (principal); I10 Essential (primary) hypertension

== ENCOUNTER → 2023-03-31 | Outpatient (CLI) | payer MEDICARE ==
[2023-03-31 16:13] LABS: BLOOD UREA NITROGEN 14 MG/DL (9-23); CALCIUM LEVEL 9.7 MG/DL (8.3-10.6); CARBON DIOXIDE LEVEL 29 MMOL/L (20-31); CHLORIDE LEVEL 106 MMOL/L (98-107); CREATININE FOR GFR 0.87 MG/DL (0.55-1.30); GLOMERULAR FILTRATION RATE > 60.0 (>39); GLUCOSE, FASTING 88 MG/DL (74-106); SODIUM LEVEL 142 MMOL/L (136-145)
== END ==
LOC: M PLALAB 13:38
PROVIDERS: ATTEND Student in an Organized Health Care Education/Training Program
DX: E87.6 Hypokalemia (principal)

== ENCOUNTER → 2023-06-28 | Outpatient (REF) | payer MEDICARE | LOC: M SFHCPLAZ 11:51 | PROVIDERS: ATTEND Student in an Organized Health Care Education/Training Program | DX: I10 Essential (primary) hypertension (principal); E78.2 Mixed hyperlipidemia ==

== ENCOUNTER → 2023-09-23 | Outpatient (CLI) | payer MEDICARE ==
[2023-09-23 14:39] LABS: BASO % 0.5 % (0.0-1.0); EOS # 0.2 10^3/uL (0.0-0.5); EOS % 2.6 % (0.0-3.0); HEMATOCRIT 38.5 % (36.0-47.0); HEMOGLOBIN 12.1 g/dl (12.0-15.5); LYMPH # 1.7 10^3/uL (1.5-5.0); LYMPH % 20.1 % (24.0-44.0); MEAN CORPUSCULAR HEMOGLOBIN 29.4 pg (27.0-33.0); MEAN CORPUSCULAR HGB CONC 31.4 g/dl (32.0-36.5); MEAN CORPUSCULAR VOLUME 93.7 fl (80.0-96.0); MONO # 0.7 10^3/uL (0.0-0.8); NEUTROPHILS # 5.5 10^3/uL (1.5-8.5); NEUTROPHILS % 67.4 % (36.0-66.0); PLATELET COUNT, AUTOMATED 437 10^3/uL (150-450); RED BLOOD COUNT 4.11 10^6/uL (4.00-5.40); WHITE BLOOD COUNT 8.2 10^3/uL (4.0-10.0)
[2023-09-23 15:04] LABS: ALBUMIN 3.8 G/DL (3.2-5.2); ALKALINE PHOSPHATASE 80 U/L (46-116); ALT/SGPT 16 U/L (7.0-40); AST/SGOT 15 U/L (<34); BILIRUBIN,TOTAL 0.4 MG/DL (0.3-1.2); BLOOD UREA NITROGEN 14 MG/DL (9-23); CALCIUM LEVEL 9.3 MG/DL (8.3-10.6); CARBON DIOXIDE LEVEL 27 MMOL/L (20-31); CHLORIDE LEVEL 107 MMOL/L (98-107); CHOLESTEROL LEVEL 165 MG/DL (<200); CHOLESTEROL RISK RATIO 3.88 (<5); CREATININE FOR GFR 0.85 MG/DL (0.55-1.30); GLOMERULAR FILTRATION RATE > 60.0 (>39); GLUCOSE, FASTING 83 MG/DL (74-106); HDL CHOLESTEROL 42.5 MG/DL (>40); HEMOGLOBIN A1c 5.9 % (4.0-6.0); LDL CHOLESTEROL 94.5 MG/DL (<100); NON-HDL-C 122.5 MG/DL; POTASSIUM SERUM 3.8 MMOL/L (3.5-5.1); SODIUM LEVEL 140 MMOL/L (136-145); TOTAL PROTEIN 7.3 G/DL (5.7-8.2); TRIGLYCERIDES LEVEL 140 MG/DL (<150)
== END ==
LOC: M PLALAB 09:36
PROVIDERS: ATTEND Student in an Organized Health Care Education/Training Program
DX: I10 Essential (primary) hypertension (principal); E78.2 Mixed hyperlipidemia; Z79.899 Other long term (current) drug therapy

== ENCOUNTER → 2024-12-15 | Outpatient (CLI) | payer MEDICARE ==
[2024-12-15 13:10] LABS: BASO # 0.1 10^3/uL (0.0-0.2); BASO % 0.6 % (0.0-1.0); EOS # 0.2 10^3/uL (0.0-0.5); EOS % 2.2 % (0.0-3.0); HEMATOCRIT 38.8 % (36.0-47.0); HEMOGLOBIN 12.2 g/dl (12.0-15.5); LYMPH # 1.6 10^3/uL (1.5-5.0); LYMPH % 20.7 % (24.0-44.0); MEAN CORPUSCULAR HGB CONC 31.4 g/dl (32.0-36.5); MEAN CORPUSCULAR VOLUME 92.2 fl (80.0-96.0); MONO # 0.9 10^3/uL (0.0-0.8); MONO % 10.9 % (2.0-8.0); NEUTROPHILS # 5.1 10^3/uL (1.5-8.5); NEUTROPHILS % 65.3 % (36.0-66.0); PLATELET COUNT, AUTOMATED 490 10^3/uL (150-450); RED BLOOD COUNT 4.21 10^6/uL (4.00-5.40); WHITE BLOOD COUNT 7.8 10^3/uL (4.0-10.0)
[2024-12-15 13:17] LABS: THYROID STIMULATING HORMONE 2.504 uIU/ML (0.55-4.78)
[2024-12-15 13:18] LABS: FREE T4 1.01 NG/DL (0.89-1.76)
[2024-12-15 13:25] LABS: ALBUMIN 4.3 G/DL (3.2-5.2); BILIRUBIN,TOTAL 0.5 MG/DL (0.3-1.2); CALCIUM LEVEL 10.2 MG/DL (8.3-10.6); CREATININE FOR GFR 1.14 MG/DL (0.55-1.30); POTASSIUM SERUM 4.8 MMOL/L (3.5-5.1)
== END ==
LOC: M PLALAB 09:38
DX: R06.02 Shortness of breath (principal); Z79.899 Other long term (current) drug therapy

== ENCOUNTER → 2025-03-16 | Outpatient (CLI) | payer MEDICARE | LOC: M PLAIMG 07:52 | DX: I49.8 Other specified cardiac arrhythmias (principal); I08.1 Rheumatic disorders of both mitral and tricuspid valves ==

== ENCOUNTER → 2025-05-10 | Outpatient (REF) | payer MEDICARE | LOC: M SFHCPLAZ 10:11 | PROVIDERS: ATTEND Family Medicine | DX: Z53.9 Procedure and treatment not carried out, unspecified reason (principal); E78.2 Mixed hyperlipidemia ==

== ENCOUNTER → 2025-05-29 | Outpatient (CLI) | payer MEDICARE ==
[2025-05-29 11:22] LABS: ALT/SGPT 24.0 U/L (7.0-40); AST/SGOT 28.0 U/L (<34); CALCIUM LEVEL 9.9 MG/DL (8.3-10.6); CARBON DIOXIDE LEVEL 28.0 MMOL/L (20-31); CHLORIDE LEVEL 104.0 MMOL/L (98-107); CHOLESTEROL LEVEL 174.0 MG/DL (<200); CHOLESTEROL RISK RATIO 3.05 (<5); CREATININE FOR GFR 1.08 MG/DL (0.55-1.30); GLOMERULAR FILTRATION RATE 51.9 (>32); LDL CHOLESTEROL 99.3 MG/DL (<100); NON-HDL-C 117.1 MG/DL; POTASSIUM SERUM 4.6 MMOL/L (3.5-5.1); SODIUM LEVEL 142.0 MMOL/L (136-145); TRIGLYCERIDES LEVEL 89.0 MG/DL (<150)
[2025-05-29 11:29] LABS: PLATELET COUNT, AUTOMATED 448 10^3/uL (150-450)
== END ==
LOC: M PLALAB 08:18
PROVIDERS: ATTEND Family Medicine
DX: D69.6 Thrombocytopenia, unspecified (principal); E87.6 Hypokalemia; E78.2 Mixed hyperlipidemia